=== PATIENT | female | born 1945 | race Caucasian/White ===

== ENCOUNTER → 2020-12-26 | Outpatient (CLI) | payer MEDICARE, OTHER | LOC: CT 09:45 | DX: I65.23 Occlusion and stenosis of bilateral carotid arteries (principal) | CPT/HCPCS: 36415; 70498; 82565; 84520; Q9967 ==

== ENCOUNTER 2021-06-09 01:02 | Emergency (ER) | payer MEDICARE, OTHER ==
[2021-06-09 05:28] LABS: RED BLOOD COUNT 4.04 M/UL (4.00-5.10); WHITE BLOOD COUNT 10.4 K/UL (4.5-11.0)
[2021-06-09 05:38] LABS: BUN/CREATININE RATIO 27 (0-10)
== END 2021-06-09 06:35 | disposition home or self-care (01) ==
LOC: ER1 01:02
PROVIDERS: Family Medicine
DX: I10 Essential (primary) hypertension (principal); R51.9 Headache, unspecified; E11.9 Type 2 diabetes mellitus without complications; E78.5 Hyperlipidemia, unspecified; Z86.79 Personal history of other diseases of the circulatory system
CPT/HCPCS: 70450; 80048; 85025; 85652; 86140; 93005; 96374; 96375; 99284; J0360; J0780